=== PATIENT | female | born 1970 | race Caucasian/White ===

== ENCOUNTER → 2016-10-06 | Outpatient (CLI) | payer BC ==
[~2016-10-06] MED LIST: CTLP20T
--- NOTE | 2016-10-06 10:30 | Diagnostic Imaging Report ---
PROCEDURE: US Gallbladder. TECHNIQUE: Multiple real-time grayscale images were obtained over the right upper quadrant in various projections. INDICATION: Right upper quadrant abdominal pain Ultrasonography is performed in the right upper quadrant of the abdomen. No focal hepatic lesion is identified. There is no biliary ductal dilatation. There is non-shadowing material within the lumen of the gallbladder which may represent sludge. There is no gallbladder wall thickening or pericholecystic fluid. No pancreatic or renal abnormalities identified. No free fluid is seen in the right upper quadrant. IMPRESSION: Probable sludge within the lumen of the gallbladder, however, no ultrasound evidence of cholecystitis or biliary obstruction is appreciated. Dictated by: Dictated on workstation # [id number]
== END ==
LOC: RAD 09:20
PROVIDERS: ATTEND Nurse Practitioner
DX: R10.11 Right upper quadrant pain (principal)
CPT/HCPCS: 76705